=== PATIENT | male | born 1965 | race American Indian/Alaskan Native ===

== ENCOUNTER 2018-12-27 07:09 | Emergency (ER) | payer MEDICAID ==
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
[2018-12-27] MEDS ORDERED: LIDOCAINE (1%) 10 MG/1 ML VIAL 20 ML MDV ONE (08:39)
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
[2018-12-27] MEDS ORDERED: ACETAMINOPHEN 325 MG TAB ONE (09:07)
[2018-12-27 09:11] VITALS: BP 136/75
[2018-12-27] MEDS ORDERED: ACETAMINOPHEN 325 MG TAB PO ONE (09:11)
== END 2018-12-27 09:10 | disposition home or self-care (01) ==
LOC: ED 07:09
DX: S01.412A Laceration without foreign body of left cheek and temporomandibular area, initial encounter (principal); Z79.899 Other long term (current) drug therapy; Y04.0XXA Assault by unarmed brawl or fight, initial encounter; Y93.89 Activity, other specified; Y92.89 Other specified places as the place of occurrence of the external cause; Y99.8 Other external cause status
CPT/HCPCS: 70450

== ENCOUNTER 2021-11-02 20:40 | Emergency (ER) | payer SELFPAY | END 2021-11-03 01:36 | disposition left against medical advice (07) | LOC: ED 20:40 | DX: R52 Pain, unspecified (principal); Z53.21 Procedure and treatment not carried out due to patient leaving prior to being seen by health care provider ==

== ENCOUNTER 2021-11-03 19:16 | Inpatient (IN) | payer MEDICAID, OTHER ==
[2021-11-03] MEDS ORDERED: SODIUM CHLORIDE 0.9% 1000 ML IV SOLN IV ONE (22:38)
[2021-11-03] MEDS ORDERED: MORPHINE 4 MG/1 ML INJ IV ONE (22:39)
[2021-11-03] MEDS ORDERED: ONDANSETRON 4 MG/2 ML INJ IV ONE (22:39)
[2021-11-03] MEDS ORDERED: KETOROLAC 30 MG/1 ML INJ IV ONE (22:39)
[2021-11-03] MEDS ORDERED: ACETAMINOPHEN 325 MG TAB PO ONE (22:44)
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
--- NOTE | 2021-11-03 23:13 | XRay Report ---
RIGHT ELBOW 3 VIEWS INDICATION / CLINICAL INFORMATION: right elbow pain COMPARISON: None available. FINDINGS: BONES and JOINT(S): No acute fracture or subluxation. Mild degenerative arthrosis is noted along the elbow. SOFT TISSUES: Moderate edema is present, most notably posteriorly. No other significant abnormality. ADDITIONAL FINDINGS: None. IMPRESSION: 1. Moderate right elbow edema without other acute findings. 2. Mild degenerative arthrosis of the right elbow. Signer Name: Sonu Pichardo MD Signed: 11/03/2021 11:09 PM Workstation Name: [id number]
--- NOTE | 2021-11-03 23:14 | XRay Report ---
CHEST 1 VIEW 11/03/2021 10:51 PM INDICATION / CLINICAL INFORMATION: fever. COMPARISON: One view of the chest from 12/30/2014. FINDINGS: SUPPORT DEVICES: None. HEART / MEDIASTINUM: No significant abnormality. LUNGS / PLEURA: Lung volumes are reduced with bibasilar opacities. The upper lungs are clear. No sign ificant pleural effusion. No pneumothorax. ADDITIONAL FINDINGS: No significant additional findings. IMPRESSION: Bibasilar opacities are favored to represent atelectasis. Pneumonia cannot be entirely excluded given the history of fever. Signer Name: Sonu Pichardo MD Signed: 11/03/2021 11:10 PM Workstation Name: [id number]
[2021-11-03 23:21] LABS: Hematocrit 28.2 % (35.5-45.6); Hemoglobin 9.1 gm/dl (11.8-15.2); Mean Corpuscular HGB Conc 32 % (32-34); Mean Corpuscular Volume 97 fl (84-94); Platelet Count 482 K/mm3 (140-440); Red Blood Count 2.92 M/mm3 (3.65-5.03)
[2021-11-03 23:30] LABS: INR 1.03 (0.87-1.13)
[2021-11-03 23:31] LABS: Partial Thromboplastin Time 37.3 Sec. (24.2-36.6)
[2021-11-03 23:32] LABS: Red Cell Distribution Width 20.9 % (13.2-15.2)
[2021-11-03] MEDS ORDERED: LIDOCAINE (1%) 10 MG/1 ML VIAL 20 ML MDV INFILTRATI ONE (23:36)
[2021-11-03 23:37] LABS: Alanine Aminotransferase 11 units/L (7-56); Albumin 3.8 g/dL (3.9-5); BUN/Creatinine Ratio 20; Blood Urea Nitrogen 30 mg/dL (9-20); Hemolysis Index 7
[2021-11-03 23:41] LABS: Calcium 5.5 mg/dL (8.4-10.2)
[2021-11-04] MEDS ORDERED: MAGNESIUM SULFATE 2 GM/50 ML BAG IV ONE ×2 (00:01→21:37)
[2021-11-04] MEDS ORDERED: CALCIUM GLUCONATE 1,000 MG in SODIUM CHLORIDE 0.9% 100 ML IV ONE (00:01)
[2021-11-04] MEDS ORDERED: POTASSIUM CHLORIDE ER 20 MEQ TAB PO ONE ×2 (00:01→21:35)
[2021-11-04] MEDS ORDERED: LIDOCAINE 1%/EPINEPHRINE 1:100,000 VIAL (20 ML) INFILTRATI NR (00:30)
[2021-11-04] MEDS ORDERED: CALC GLUCONATE 1GM/NS 100 ML 1 GM/100 ML BAG IV ONE (01:00)
[2021-11-04] MEDS ORDERED: LIDOCAINE-MPF (1%) 10 MG/1 ML VIAL 5 ML INFILTRATI ONE ×3 (01:00→23:45)
[2021-11-04] MEDS ORDERED: VANCOMYCIN 1,250 MG in SODIUM CHLORIDE 0.9% 500 ML 500 ML IV ONE (01:05)
[2021-11-04 01:14] LABS: Basophils % (Manual) 0 % (0.0-1.8); Eosinophils % (Manual) 0 % (0.0-4.3); Total Cells Counted 100
[2021-11-04 01:15] LABS: Anisocytosis 1+; Platelet Estimate Consistent w Auto
[2021-11-04 01:33] LABS: Erythrocyte Sedimentation Rate 20 mm/Hr (0-20)
[2021-11-04] MEDS ORDERED: VANCOMYCIN 1,250 MG in SODIUM CHLORIDE 0.9% 250ML 250 ML IV ONE (01:45)
--- NOTE | 2021-11-04 02:21 | Cat Scan Report ---
CT RIGHT UPPER EXTREMITY WITH CONTRAST INDICATION: Swelling of left elbow and forearm without a known injury. Patient reports having a fever. TECHNIQUE: Axial, coronal and sagittal CT imaging was performed through the right upper extremity from the hand through the shoulder after injection of 100 cc Omnipaque [address] scans at this location are performed using CT dose reduction for ALARA by means of automated exposure control. COMPARISON: Right elbow radiographs performed on 11/03/2021. FINDINGS: No acute fracture, dislocation or aggressive appearing osseous lesion. Moderate osteoarthritis of the elbow is noted without other significant degenerative changes. A moderate right elbow joint effusion is noted with moderate edema of the right elbow. No other signi ficant soft tissue abnormality. IMPRESSION: Possible septic arthritis of the right elbow given the provided history. Please correlate with the cl inical findings. Signer Name: Sonu Pichardo MD Signed: 11/04/2021 2:17 AM Workstation Name: [id number]
[2021-11-04] MEDS ORDERED: SODIUM CHLORIDE 0.9% 1000 ML 1,000 ML IV ONE ×2 (04:14→04:38)
[2021-11-04] MEDS ORDERED: SODIUM CHLORIDE 0.9% 1000 ML 1,000 ML ONE (04:15)
[2021-11-04] MEDS ORDERED: POTASSIUM CHLORIDE 10 MEQ 10 MEQ/100 ML BAG IV ONE (04:19)
[2021-11-04] MEDS ORDERED: CEFEPIME/NS 2 GM/100 ML 2 GM/100 ML BAG IV ONE (04:42)
[2021-11-04 05:09] LABS: Total Cells Counted 100 /mm3
[2021-11-04] MEDS ORDERED: MORPHINE 4 MG/1 ML INJ IV PRN (06:05)
[2021-11-04] MEDS ORDERED: MAGNESIUM HYDROXIDE (MOM) ORAL LIQD UDC PO PRN (06:05)
[2021-11-04] MEDS ORDERED: ONDANSETRON 4 MG/2 ML INJ IV PRN (06:05)
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
[2021-11-04] MEDS ORDERED: VANCOMYCIN PHARMACY TO DOSE IV SCH (09:00)
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
[2021-11-04] MEDS: ACETAMINOPHEN 325 MG TAB PO PRN ×2 (13:27→20:14)
[2021-11-04] MEDS: HEPARIN 5,000 UNIT/1 ML VIAL SUB-Q SCH ×2 (13:27→21:57)
[2021-11-04] MEDS: SODIUM CHLORIDE 0.45% 1000 ML 1,000 ML IV SCH (16:00)
[2021-11-04 16:42] LABS: Color,Urine Yellow (Yellow)
[2021-11-04 16:53] LABS: Amphetamine Screen,Urine Negative; Benzodiazepines Screen,Urine Negative; Cannabinoid Screen,Urine Negative; Cocaine Screen,Urine Negative; Methadone Screen,Urine Negative; Opiate Screen,Urine Negative
[2021-11-04] MEDS: CEFEPIME/NS 2 GM/100 ML 2 GM/100 ML BAG IV SCH (17:21)
--- NOTE | 2021-11-04 18:34 | Event Note ---
Date: 11/04/21 Labs ordered multiple times. Stat labs ordered around 10 AM. Also talked to the nurse about stat labs at 15.26. Labs not done so far.
[2021-11-04 19:25] LABS: Alanine Aminotransferase 8 units/L (7-56); Albumin 2.9 g/dL (3.9-5); BUN/Creatinine Ratio 21; Blood Urea Nitrogen 23 mg/dL (9-20); Hemolysis Index 9
[2021-11-04 19:50] LABS: Calcium 4.9 mg/dL (8.4-10.2)
[2021-11-04] MEDS ORDERED: POTASSIUM CHLORIDE 10 MEQ 10 MEQ/100 ML BAG IV SCH (22:00)
[2021-11-04] MEDS ORDERED: CALCIUM GLUCONATE 2,000 MG in SODIUM CHLORIDE 0.9% 100 ML IV ONE (22:37)
[2021-11-04] MEDS ORDERED: POTASSIUM CHLORIDE IV ONE (22:45)
[2021-11-04] MEDS ORDERED: SODIUM CHLORIDE 0.9% IV ONE (22:45)
[2021-11-04] MEDS ORDERED: MAGNESIUM SULFATE IV ONE (22:45)
[2021-11-05] MEDS: ACETAMINOPHEN 325 MG TAB PO PRN ×3 (01:29→18:41)
[2021-11-05] MEDS ORDERED: VANCOMYCIN/NS 1 GM/250 ML 1 GM/250 ML BAG IV SCH (02:30)
[2021-11-05 05:05] LABS: Hematocrit 22.2 % (35.5-45.6); Hemoglobin 7.1 gm/dl (11.8-15.2); Mean Corpuscular HGB Conc 32 % (32-34); Mean Corpuscular Volume 97 fl (84-94); Platelet Count 524 K/mm3 (140-440)
[2021-11-05 05:09] LABS: Red Cell Distribution Width 21.5 % (13.2-15.2)
[2021-11-05 05:26] LABS: BUN/Creatinine Ratio 19; Blood Urea Nitrogen 21 mg/dL (9-20); Hemolysis Index 0
[2021-11-05 05:54] LABS: Calcium 5.4 mg/dL (8.4-10.2)
[2021-11-05] MEDS: CEFEPIME/NS 2 GM/100 ML 2 GM/100 ML BAG IV SCH ×2 (05:56→18:46)
[2021-11-05 06:11] LABS: Anisocytosis 1+; Basophils % (Manual) 0 % (0.0-1.8); Total Cells Counted 100
[2021-11-05 06:12] LABS: Platelet Estimate Consistent w Auto
[2021-11-05] MEDS: HEPARIN 5,000 UNIT/1 ML VIAL SUB-Q SCH ×3 (06:19→22:15)
[2021-11-05] MEDS ORDERED: CALCIUM GLUCONATE 2,000 MG in SODIUM CHLORIDE 0.9% 100 ML IV ONE (07:55)
[2021-11-05] MEDS ORDERED: POTASSIUM CHLORIDE ER 20 MEQ TAB PO SCH (08:30)
[2021-11-05] MEDS ORDERED: MAGNESIUM SULFATE 2 GM/50 ML BAG IV ONE (09:00)
[2021-11-05] MEDS ORDERED: CALC GLUCONATE 1GM/NS 100 ML 1 GM/100 ML BAG IV ONE ×2 (09:00→10:00)
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
[2021-11-05] MEDS: POTASSIUM CHLORIDE 10 MEQ 10 MEQ/100 ML BAG IV SCH ×4 (09:26→16:42)
[2021-11-05] MEDS: MORPHINE 2 MG/1 ML INJ IV PRN (09:45)
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
[2021-11-05] MEDS: predniSONE 20 MG TAB PO SCH (13:00)
[2021-11-05] MEDS: SODIUM CHLORIDE 0.45% 1000 ML 1,000 ML IV SCH (13:08)
[2021-11-05] MEDS ORDERED: POTASSIUM CHLORIDE ER 20 MEQ TAB PO ONE (15:04)
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
[2021-11-05] MEDS: CALCIUM CARBONATE 500 MG TAB CHEW PO SCH ×2 (16:49→22:55)
--- NOTE | 2021-11-05 16:54 | Electrocardiograph Report ---
[facility] Test Date: 2021-11-03 Test Time: 23:04:56 Pat Name: MECCA JULES Department: Room: A454 1 Gender: M Client Portfolio Manager: ROB : [id number] Requested By: NYASIA PHILLIPS Order Number: [id number] Reading MD: Rambo Quintero Measurements Intervals [place] Rate: 112 P: 72 KS: 139 QRS: 81 QRSD: 97 T: 54 QT: 384 QTc: 525 Interpretive Statements Sinus tachycardia Prolonged QT interval No previous ECG available for comparison Electronically Signed On 11-05-2021 16:54:21 EDT by Rambo Quintero
[2021-11-05] MEDS: CHOLECALCIFEROL (VIT D3) 5,000 UNIT TAB PO SCH (18:54)
[2021-11-05] MEDS ORDERED: VANCOMYCIN 1,250 MG in SODIUM CHLORIDE 0.9% 250ML 250 ML IV SCH (22:00)
[2021-11-06] MEDS: SODIUM CHLORIDE 0.45% 1000 ML 1,000 ML IV SCH (00:28)
[2021-11-06] MEDS: CEFEPIME/NS 2 GM/100 ML 2 GM/100 ML BAG IV SCH (06:06)
[2021-11-06] MEDS: HEPARIN 5,000 UNIT/1 ML VIAL SUB-Q SCH ×3 (06:06→21:49)
--- NOTE | 2021-11-06 07:55 | Progress Note ---
Assessment and Plan 1. Acute kidney injury: Most likely vasomotor SHARON. UA bland. Monitor renal function. Creatinine level better. Avoid nephrotoxic agents. Meds dosage based on GFR. 2. FEN: Severe hypokalemia, replete K, improving. Hypomagnesemia and hypocalcemia, replete lytes. On Vit.D. Replete lytes appropriately. Monitor lytes and volume status. 3. Acute gouty arthritis: Prednisone. Monitor. 4. Fever, POA: Fever, likely secondary to gout. CT showed moderate right elbow joint effusion. Chest x-ray without any pneumonia. Off abx. Seen by ID. 5. QT prolongation: Likely 2/2 electrolyte abnormalities. Monitor. 6. Syncope. 7. H/o Hypertension: Monitor BP. Subjective: Patient was seen and examined at the bedside. Examination: General appearance: well-developed, appears stated age, no distress HEENT: atraumatic Neck: trachea midline Respiratory: ctab Heart: S1S2, regular, no murmur Abdomen: soft, bowel sounds heard, NT Integumentary: no obvious rash Neurologic: AO, able to move extremities Ext: trace LE edema MSK: joint tenderness noted Subjective Date of service: 11/06/21 Principal diagnosis: fever Objective - Vital Signs Vital signs: Vital Signs - 12hr 11/05/21 11/06/21 11/06/21 23:25 04:00 04:05 Temperature 97.8 F 97.8 F Pulse Rate 103 H 103 H Respiratory 18 18 Rate Blood Pressure 113/69 Blood Pressure 113/69 [Left] O2 Sat by Pulse 97 97 97 Oximetry - Lab 11/06/21 07:56 11/06/21 07:56 Most recent lab results Calcium 5.4 mg/dL (8.4-10.2) L* 11/05/21 04:24 Phosphorus 2.80 mg/dL (2.5-4.5) 11/04/21 17:09 Magnesium 1.50 mg/dL (1.7-2.3) L 11/05/21 04:24 Medications & Allergies - Medications Allergies/Adverse Reactions: Allergies No Known Allergies Allergy (Verified 11/06/21 10:51) Home Medications: Home Medications Medication Instructions Recorded Confirmed Last Taken Type amLODIPine [Norvasc] 10 mg PO DAILY 11/06/21 11/06/21 Unknown History Active Medications: Generic Name Dose Route Start Last Admin Trade Name Freq PRN Reason Stop Dose Admin Acetaminophen 650 mg 11/04/21 06:05 11/05/21 18:41 Acetaminophen 325 Mg Tab PO 650 mg Q4H PRN Administration Pain MILD(1-3)/Fever >100.5/RUFF Calcium Carbonate/Glycine 1,000 mg 11/05/21 16:00 11/05/21 22:55 Calcium Carbonate 500 Mg Tab Chew PO 1,000 mg BID MATHEW Administration Cholecalciferol 5,000 unit 11/05/21 16:00 11/05/21 18:54 Cholecalciferol (Vit D3) 5,000 Unit Tab PO 5,000 unit DAILY MATHEW Administration Heparin Sodium (Porcine) 5,000 unit 11/04/21 14:00 11/06/21 06:06 Heparin 5,000 Unit/1 Ml Vial SUB-Q 5,000 unit Q8HR MATHEW Administration Sodium Chloride 1,000 mls @ 125 mls/hr 11/04/21 07:00 11/06/21 00:28 Nacl 0.45% 1000 Ml IV 125 mls/hr DIRECT MATHEW Administration Magnesium Hydroxide 30 ml 11/04/21 06:05 Magnesium Hydroxide (Mom) Oral Liqd Udc PO Q4H PRN Constipation Morphine Sulfate 2 mg 11/04/21 06:05 11/05/21 09:45 Morphine 2 Mg/1 Ml Inj IV 2 mg Q4H PRN Administration Pain, Moderate (4-6) Morphine Sulfate 4 mg 11/04/21 06:05 Morphine 4 Mg/1 Ml Inj IV Q4H PRN Pain , Severe (7-10) Ondansetron HCl 4 mg 11/04/21 06:05 Ondansetron 4 Mg/2 Ml Inj IV Q8H PRN Nausea And Vomiting Prednisone 40 mg 11/05/21 11:00 11/05/21 13:00 Prednisone 20 Mg Tab PO 40 mg QDAY MATHEW Administration Sodium Chloride 10 ml 11/04/21 10:00 11/05/21 22:54 Sodium Chloride 0.9% 10 Ml Flush Syringe IV Not Given BID MATHEW Sodium Chloride 10 ml 11/04/21 06:05 Sodium Chloride 0.9% 10 Ml Flush Syringe IV PRN PRN LINE FLUSH
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
[2021-11-06 09:18] LABS: Basophils % (Auto) 0.1 % (0.0-1.8); Hematocrit 25.2 % (35.5-45.6); Lymphocytes # (Auto) 0.6 K/mm3 (1.2-5.4); Lymphocytes % (Auto) 4.7 % (13.4-35.0); Mean Corpuscular HGB Conc 32 % (32-34); Mean Corpuscular Volume 96 fl (84-94); Monocytes # (Auto) 1.6 K/mm3 (0.0-0.8); Monocytes % (Auto) 11.7 % (0.0-7.3); Platelet Count 872 K/mm3 (140-440); Red Blood Count 2.62 M/mm3 (3.65-5.03)
[2021-11-06 09:19] LABS: Red Cell Distribution Width 21.9 % (13.2-15.2)
[2021-11-06 09:38] LABS: BUN/Creatinine Ratio 16; Blood Urea Nitrogen 16 mg/dL (9-20); Calcium 6.7 mg/dL (8.4-10.2); Hemolysis Index 0
[2021-11-06] MEDS: CALCIUM CARBONATE 500 MG TAB CHEW PO SCH ×2 (10:25→21:50)
[2021-11-06] MEDS: predniSONE 20 MG TAB PO SCH (10:26)
[2021-11-06] MEDS: CHOLECALCIFEROL (VIT D3) 5,000 UNIT TAB PO SCH (10:26)
[2021-11-06] MEDS ORDERED: POTASSIUM CHLORIDE ER 20 MEQ TAB PO NR (11:00)
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
--- NOTE | 2021-11-06 13:08 | Vascular Lab Report ---
DUPLEX DOPPLER ULTRASOUND CAROTID, BILATERAL INDICATION / CLINICAL INFORMATION: syncope. COMPARISON: None available. FINDINGS: RIGHT CAROTID: Mild atherosclerotic plaque. - PLAQUE ESTIMATE (%): < 50% - CCA velocity: 116 cm/sec. - ICA peak systolic velocity: 103 cm/sec. - ICA/CCA PSV Ratio: Less than 2. Right Vertebral Artery: Antegrade flow. LEFT CAROTID: Mild atherosclerotic plaque. - PLAQUE ESTIMATE (%): < 50% - CCA velocity: 117 cm/sec. - ICA peak systolic velocity: 117 cm/sec. - ICA/CCA PSV Ratio: 1.0 Left Vertebral Artery: Antegrade flow. IMPRESSION: 1. Right Internal Carotid Artery: Less than 50% diameter stenosis. 2. Left Internal Carotid Artery: Less than 50% diameter stenosis. Velocity criteria are extrapolated from diameter data as defined by the Society of Radiologists in Ul trasound Consensus Conference, Radiology 2003; 229;340-346. NO STENOSIS (NORMAL) - Plaque = none; ICA PSV < 125 cm/sec; ICA/CCA PSV Ratio < 2.0 <50% STENOSIS - Plaque < 50%; ICA PSV < 125 cm/sec; ICA/CCA PSV Ratio < 2.0 50-69% STENOSIS - Plaque > 50%; ICA PSV = 125-230 cm/sec; ICA/CCA PSV Ratio = 2.0-4.0 >70% BUT <100% STENOSIS - Plaque > 50%; ICA PSV > 230 cm/sec; ICA/CCA PSV Ratio > 4.0 NEAR OCCLUSION - Plaque = visible lumen; ICA PSV = high/low/none; ICA/CCA PSV Ratio = variable TOTAL OCCLUSION - Plaque = no lumen; ICA PSV = none; ICA/CCA PSV Ratio = N/A Scribed by: Evelyn Alonzo RDMS, RVT, RMSKS Scribed: 11/06/2021 11:00 AM I have reviewed the images, agree with this report, and edited this report as needed. Signer Name: Felipe Gagnon MD Signed: 11/06/2021 1:04 PM Workstation Name: [id number]
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
[2021-11-06] MEDS: ACETAMINOPHEN 325 MG TAB PO PRN (16:09)
[2021-11-07] MEDS: ACETAMINOPHEN 325 MG TAB PO PRN (02:24)
[2021-11-07] MEDS: SODIUM CHLORIDE 0.45% 1000 ML 1,000 ML IV SCH (02:25)
[2021-11-07 05:17] LABS: BUN/Creatinine Ratio 18; Blood Urea Nitrogen 18 mg/dL (9-20); Hemolysis Index 1
[2021-11-07] MEDS: HEPARIN 5,000 UNIT/1 ML VIAL SUB-Q SCH ×2 (06:22→13:24)
[2021-11-07] MEDS: MORPHINE 2 MG/1 ML INJ IV PRN (08:58)
[2021-11-07] MEDS: CALCIUM CARBONATE 500 MG TAB CHEW PO SCH (08:59)
[2021-11-07] MEDS: CHOLECALCIFEROL (VIT D3) 5,000 UNIT TAB PO SCH (08:59)
[2021-11-07] MEDS: predniSONE 20 MG TAB PO SCH (08:59)
--- NOTE | 2021-11-07 09:55 | Progress Note ---
Assessment and Plan 1. Acute kidney injury: Most likely vasomotor SHARON. UA bland. Monitor renal function. Creatinine level better. Avoid nephrotoxic agents. Meds dosage based on GFR. 2. FEN: Severe hypokalemia, K level is better. Hypomagnesemia and hypocalcemia, replete lytes. On Vit.D. Replete lytes appropriately. Monitor lytes and volume status. 3. Acute gouty arthritis: Prednisone. Monitor. 4. Fever, POA: Fever, likely secondary to gout. CT showed moderate right elbow joint effusion. Chest x-ray without any pneumonia. Off abx. Seen by ID. 5. QT prolongation: Likely 2/2 electrolyte abnormalities. Monitor. 6. Syncope. 7. H/o Hypertension: Monitor BP. F/u in 1-2 weeks. Subjective: Patient was seen and examined at the bedside. No new complaint. Examination: General appearance: well-developed, appears stated age, no distress HEENT: atraumatic Neck: trachea midline Respiratory: ctab Heart: S1S2, regular, no murmur Abdomen: soft, bowel sounds heard, NT Integumentary: no obvious rash Neurologic: AO, able to move extremities Ext: trace LE edema MSK: b/l ankle joint tenderness noted Subjective Date of service: 11/07/21 Principal diagnosis: fever Objective - Vital Signs Vital signs: Vital Signs - 12hr 11/06/21 11/06/21 11/07/21 22:00 23:44 02:01 Temperature 97.8 F Pulse Rate 90 86 90 Respiratory 18 Rate Blood Pressure Blood Pressure 142/82 [Left] O2 Sat by Pulse 99 Oximetry 11/07/21 11/07/21 11/07/21 03:46 04:00 07:59 Temperature 97.9 F 98.0 F Pulse Rate 80 99 H Respiratory 18 18 Rate Blood Pressure 131/69 138/86 Blood Pressure [Left] O2 Sat by Pulse 99 97 96 Oximetry - Lab 11/06/21 07:56 11/07/21 04:06 Most recent lab results Calcium 7.0 mg/dL (8.4-10.2) L 11/07/21 04:06 Phosphorus 2.80 mg/dL (2.5-4.5) 11/04/21 17:09 Magnesium 2.00 mg/dL (1.7-2.3) 11/06/21 07:56 Medications & Allergies - Medications Allergies/Adverse Reactions: Allergies No Known Allergies Allergy (Verified 11/07/21 09:10) Home Medications: Home Medications Medication Instructions Recorded Confirmed Last Taken Type amLODIPine 10 mg PO DAILY 11/06/21 11/06/21 Unknown History Calcium Carbonate [Tums 500MG CHEW] 1,000 mg PO BID #60 tablet 11/07/21 Unknown Rx Cholecalciferol (Vitamin D3) 5,000 unit PO DAILY #30 tablet 11/07/21 Unknown Rx [Vitamin D3] Prednisone [predniSONE 10 mg 10 mg PO .TAPER #1 11/07/21 Unknown Rx (6-Day Pack, 21 Tabs)] allopurinoL [Zyloprim] 100 mg PO QDAY #30 tablet 11/07/21 Unknown Rx Active Medications: Generic Name Dose Route Start Last Admin Trade Name Freq PRN Reason Stop Dose Admin Acetaminophen 650 mg 11/04/21 06:05 11/07/21 02:24 Acetaminophen 325 Mg Tab PO 650 mg Q4H PRN Administration Pain MILD(1-3)/Fever >100.5/RUFF Calcium Carbonate/Glycine 1,000 mg 11/05/21 16:00 11/07/21 08:59 Calcium Carbonate 500 Mg Tab Chew PO 1,000 mg BID MATHEW Administration Cholecalciferol 5,000 unit 11/05/21 16:00 11/07/21 08:59 Cholecalciferol (Vit D3) 5,000 Unit Tab PO 5,000 unit DAILY MATHEW Administration Heparin Sodium (Porcine) 5,000 unit 11/04/21 14:00 11/07/21 06:22 Heparin 5,000 Unit/1 Ml Vial SUB-Q 5,000 unit Q8HR MATHEW Administration Sodium Chloride 1,000 mls @ 125 mls/hr 11/04/21 07:00 11/07/21 02:25 Nacl 0.45% 1000 Ml IV 125 mls/hr DIRECT MATHEW Administration Magnesium Hydroxide 30 ml 11/04/21 06:05 Magnesium Hydroxide (Mom) Oral Liqd Udc PO Q4H PRN Constipation Morphine Sulfate 2 mg 11/04/21 06:05 11/07/21 08:58 Morphine 2 Mg/1 Ml Inj IV 2 mg Q4H PRN Administration Pain, Moderate (4-6) Morphine Sulfate 4 mg 11/04/21 06:05 Morphine 4 Mg/1 Ml Inj IV Q4H PRN Pain , Severe (7-10) Ondansetron HCl 4 mg 11/04/21 06:05 Ondansetron 4 Mg/2 Ml Inj IV Q8H PRN Nausea And Vomiting Prednisone 40 mg 11/05/21 11:00 11/07/21 08:59 Prednisone 20 Mg Tab PO 40 mg QDAY MATHEW Administration Sodium Chloride 10 ml 11/04/21 10:00 11/07/21 08:59 Sodium Chloride 0.9% 10 Ml Flush Syringe IV 10 ml BID MATHEW Administration Sodium Chloride 10 ml 11/04/21 06:05 Sodium Chloride 0.9% 10 Ml Flush Syringe IV PRN PRN LINE FLUSH
[2021-11-07 11:38] VITALS: BP 127/74
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
== END 2021-11-07 17:45 | disposition home or self-care (01) | DRG 553 ==
LOC: ED 19:16 → 4A 11-04 06:05
PROVIDERS: ADMIT Internal Medicine Geriatric Medicine; ATTEND Internal Medicine
PROC: 0R9L3ZZ Drainage of Right Elbow Joint, Percutaneous Approach (ICD-10-PCS; principal; 2021-11-03)
DX: M10.021 Idiopathic gout, right elbow (principal); N17.0 Acute kidney failure with tubular necrosis; E87.6 Hypokalemia; I10 Essential (primary) hypertension; E86.9 Volume depletion, unspecified; E83.42 Hypomagnesemia; E83.51 Hypocalcemia; R55 Syncope and collapse; I45.81 Long QT syndrome
CPT/HCPCS: 36415; 71045; 80048; 80053; 80307; 81001; 82140; 82330; 82947; 83605; 83735; 83970; 84100; 84132; 84484; 84550; 85007; 85025; 85048; 85610; 85652; 85730; 87040; 87116; 89051; 93005; 93306; 93880; G0378; J3490; C8929; J0610; J0692; J1644; J1885; J2270; J2405; J3370; J3475; J3480; J7030; J7040; J7050; Q9967